=== PATIENT | male | born 1945 | race Caucasian/White ===

== ENCOUNTER 2018-07-13 11:32 | Emergency (ER) | payer BC, MEDICARE, OTHER ==
[~2018-07-13] VITALS: Ht 182.9 cm; Wt 111.4 kg
[~2018-07-13 11:32] MED LIST: ALBU6.7H INH; BUDE10.22 INH; FURO-150 PO; GABA-532 PO; HYDR-4353 PO; LISI10TA4 PO; METO25TA6 PO; PRAV80TA3 PO; RANI150C4 PO
[2018-07-13 12:08] LABS: CLARITY,URINE CLEAR (Clear); COLOR,URINE YELLOW (Yellow); GLUCOSE, URINE NEGATIVE (Neg); KETONES,URINE NEGATIVE (Neg); LEUKOCYTE ESTERASE ,URINE NEGATIVE (Neg); NITRITES, URINE NEGATIVE (Neg); OCCULT BLOOD,URINE NEGATIVE (Neg); PROTEIN,URINE NEGATIVE (Neg); UROBILINOGEN,URINE 0.2 E.U/dL (0.2-1.0)
[2018-07-13 12:09] LABS: UA COLLECTION TYPE CLN CATCH MIDSTREAM
[2018-07-13] MEDS ORDERED: morphine 4 MG/ML inj SYRINge IV ONE ×2 (12:15→13:40)
[2018-07-13 12:36] LABS: BASOPHILS % (AUTO) 0.7 % (0-1); EOSINOPHILS # (AUTO) 0.1 X10'3 (0-0.9); EOSINOPHILS % (AUTO) 1.5 % (0-6); HEMATOCRIT 41.7 % (42.0-52.0); HEMOGLOBIN 14.3 g/dl (14.0-17.9); LYMPHOCYTES # (AUTO) 1.6 X10'3 (1.1-4.8); LYMPHOCYTES % (AUTO) 23.5 % (21-51); MEAN CORPUSCULAR HEMOGLOBIN 31.4 PG (27.0-31.0); MEAN CORPUSCULAR HGB CONC 34.4 % (33.0-36.5); MEAN CORPUSCULAR VOLUME 91.4 FL (78-98); MEAN PLATELET VOLUME 7.2 FL (7.4-10.4); MONOCYTES # (AUTO) 0.5 X10'3 (0-0.9); MONOCYTES % (AUTO) 7.8 % (2-12); NEUTROPHILS # (AUTO) 4.4 X10'3 (1.8-7.7); NEUTROPHILS % (AUTO) 66.5 % (42-75); PLATELET COUNT 238 X10'3 (140-440); RED BLOOD COUNT 4.57 X10'6 (4.70-6.10); WHITE BLOOD COUNT 6.6 X10'3 (4.5-11.0)
[2018-07-13 13:01] LABS: ALANINE AMINOTRANSFERASE 30 U/L (12-78); ALBUMIN 3.9 G/DL (3.4-5.0); ALBUMIN/GLOBULIN RATIO 1.1 (1.1-1.5); ALKALINE PHOSPHATASE 82 IU/L (46-116); ANION GAP 12 (8-16); ASPARTATE AMINO TRANSFERASE 18 U/L (10-37); BILIRUBIN,TOTAL 0.7 MG/DL (0.1-1.0); BLOOD UREA NITROGEN 11 MG/DL (7-18); BUN/CREATININE RATIO 7.4 (5.4-32.0); CALCIUM 9.1 MG/DL (8.5-10.1); CHLORIDE 102 MMOL/L (99-107); CREATININE 1.48 MG/DL (0.60-1.10); LIPASE 140 U/L (73-393); POTASSIUM 4.1 MMOL/L (3.5-5.1); SODIUM 139 MMOL/L (135-145); TOTAL CARBON DIOXIDE 24.9 MMOL/L (24-32); TOTAL PROTEIN 7.5 G/DL (6.4-8.2); eGFR 47 ML/MIN
[2018-07-13 13:02] LABS: GLUCOSE 126 MG/DL (70-104)
[2018-07-13] MEDS ORDERED: ketorolac trometh. 30mg/ml inj. IV ONE (13:25)
[2018-07-13] MEDS ORDERED: CYCL-1 PO (13:29)
[2018-07-13] MEDS ORDERED: HYDR-3965 PO (13:29)
[2018-07-13] MEDS ORDERED: BISA-155 PO (13:29)
[2018-07-13 13:42] VITALS: BP 136/61
== END 2018-07-13 14:18 | disposition home or self-care (01) ==
LOC: ER 11:33
DX: M54.5 Low back pain (principal); R30.0 Dysuria; I48.91 Unspecified atrial fibrillation; G89.29 Other chronic pain; Z79.899 Other long term (current) drug therapy; Z90.49 Acquired absence of other specified parts of digestive tract
CPT/HCPCS: 36415; 74176; 80053; 81003; 83690; 85025; 96374; 96375; 96376; 99285; J1885; J2270

== ENCOUNTER 2018-07-15 18:22 | Emergency (ER) | payer BC, MEDICARE, OTHER ==
[~2018-07-15] VITALS: Ht 185.4 cm; Wt 120.0 kg
[~2018-07-15 18:22] MED LIST changes: +BISA-155 PO; +CYCL-1 PO; +HYDR-3965 PO
[2018-07-15 18:35] VITALS: BP 106/71
[2018-07-15] MEDS ORDERED: cyclobenzaprine 10mg tablet PO ONE (19:15)
[2018-07-15] MEDS ORDERED: HYDROcodone/acetaminophen 5mg/325mg tablet PO ONE (19:15)
[2018-07-15] MEDS ORDERED: ketorolac trometh inj. 60 MG/2 ML VIAL IM ONE (19:15)
[2018-07-15] MEDS ORDERED: METH500T PO (19:18)
[2018-07-15] MEDS ORDERED: ACET-3067 PO (19:18)
== END 2018-07-15 19:49 | disposition home or self-care (01) ==
LOC: ER 18:23
DX: M54.5 Low back pain (principal); M62.830 Muscle spasm of back; R20.0 Anesthesia of skin; G89.29 Other chronic pain; I48.91 Unspecified atrial fibrillation; Z79.899 Other long term (current) drug therapy; Z90.49 Acquired absence of other specified parts of digestive tract
CPT/HCPCS: 96372; 99283; J1885